=== PATIENT | male | born 1970 | race African-American/Black ===

== ENCOUNTER 2019-04-19 15:52 | Emergency (ER) | payer MEDICAID ==
[~2019-04-19] VITALS: Ht 180.3 cm; Wt 79.4 kg
[2019-04-19 16:01] VITALS: BP 129/77
[2019-04-19] MEDS ORDERED: NKM (16:04)
--- NOTE | 2019-04-19 16:18 | NUR ---
ED Nurse Note: pt walked in to ED due to swelling on right hand for 2-3 days. warm to touch. denies any pain or itchness. AAO x4. respirations even and non-labored noted. will wait for the further order.
[2019-04-19 16:47] VITALS: BP 149/86
--- NOTE | 2019-04-19 17:14 | Emergency Room Report ---
History of Present Illness General Chief Complaint: Upper Extremity Injury Source: Patient Present Illness HPI 49-year-old male with no significant past medical history here complaining of sudden onset of hand swelling that started 2 days ago. Patient does not recall falling or injuring himself. Reports that he lifts many heavy objects at work, however feels more discomfort and pressure rather than pain. The dorsum of his right hand is inflamed as well as slightly warm to touch. Patient denies fever and chills, tingling numbness, and no motor or sensory deficits noted. Patient has full range of motion. Denies chest pain, shortness of breath, palpitation, no other associated symptoms. Denies being bit by an insect or having a puncture wound. No signs of puncture wound noted. Has not taken medication for symptom relief. Allergies: Coded Allergies: No Known Allergies (Unverified , 04/19/19) Patient History Past Medical History: see triage record Past Surgical History: unable to obtain Pertinent Family History: none Immunizations: UTD Reviewed Nursing Documentation: PMH: Agreed; PSxH: Agreed Nursing Documentation-PMH Past Medical History: No Stated History Review of Systems All Other Systems: negative except mentioned in HPI Physical Exam Vital Signs Date Time Temp Pulse Resp B/P (MAP) Pulse Ox O2 Delivery O2 Flow Rate FiO2 04/19/19 16:01 99.0 106 16 129/77 98 Room Air Sp02 EP Interpretation: reviewed, normal General Appearance: no apparent distress, alert, GCS 15, non-toxic Head: normocephalic, atraumatic Eyes: bilateral eye normal inspection, bilateral eye PERRL ENT: hearing grossly normal, normal pharynx, no angioedema, normal voice Neck: full range of motion, supple/symm/no masses Respiratory: chest non-tender, lungs clear, normal breath sounds, speaking full sentences Cardiovascular #1: regular rate, rhythm, no edema, no murmur Cardiovascular #2: 2+ radial (R), 2+ radial (L) Gastrointestinal: normal bowel sounds, non tender, soft, non-distended, no guarding, no rebound Genitourinary: no CVA tenderness Musculoskeletal: back normal, digits/nails normal, gait/station normal, normal range of motion, non-tender, no calf tenderness, swelling - dorsum right hand Neurologic: alert, oriented x3, responsive, motor strength/tone normal, sensory intact, speech normal Psychiatric: judgement/insight normal, memory normal, mood/affect normal, no suicidal/homicidal ideation Skin: other - right hand warm to touch Lymphatic: no adenopathy Medical Decision Making PA Attestation All my diagnosis and treatment plans were reviewed ad discussed with my supervising physician Dr. Segal Diagnostic Impression: Primary Impression: Contusion of right hand Additional Impression: Cellulitis of hand ER Course 49-year-old male with no significant past medical history here complaining of sudden onset of hand swelling that started 2 days ago. Patient does not recall falling or injuring himself. Reports that he lifts many heavy objects at work, however feels more discomfort and pressure rather than pain. The dorsum of his right hand is inflamed as well as slightly warm to touch. Patient denies fever and chills, tingling numbness, and no motor or sensory deficits noted. Patient has full range of motion. Denies chest pain, shortness of breath, palpitation, no other associated symptoms. Denies being bit by an insect or having a puncture wound. No signs of puncture wound noted. Has not taken medication for symptom relief. Ddx considered but are not limited to : Cellulitis, superficial infection, abscess, hand fracture versus contusion versus sprain Vital signs: are WNL, pt. is afebrile H&PE are most consistent with: Right hand cellulitis, contusion of right hand ORDERS: Right hand x-ray, Augmentin, ibuprofen ED INTERVENTIONS: Goyo wrap and ibuprofen DISCHARGE: At this time pt. is stable for d/c to home. Will provide printed patient care instructions, and any necessary prescriptions. Care plan and follow up instructions have been discussed with the patient prior to discharge. Patient to follow-up with primary care provider possible infection noted if worsening symptoms or fever chills return to the emergency room Other X-Ray Diagnostic Results Other X-Ray Diagnostic Results : X-Ray ordered: right hand Xray # of Views/Limited Vs Complete: 3 View Indication: Pain EP Interpretation: Yes PA Xray: Interpretation reviewed, by supervising MD, and agrees with findings. Interpretation: no dislocation, no fractures Impression: No acute disease Electronically Signed by: Casandra Shelley PA-C Last Vital Signs Date Time Temp Pulse Resp B/P (MAP) Pulse Ox O2 Delivery O2 Flow Rate FiO2 04/19/19 16:47 98.1 109 18 149/86 95 Room Air Disposition: HOME, SELF-CARE Condition: Stable Scripts Amoxicillin/Potassium Clav 500-125 Tablet* (AUGMENTIN 500-125 TABLET*) 1 Each Tablet 1 TAB ORAL BID for 7 Days, #14 TAB Prov: Casandra Joya 04/19/19 Ibuprofen (Ibu) 800 Mg Tablet 800 MG PO BID, #30 TAB Prov: Casandra Joya 04/19/19 Referrals: NOT CHOSEN IPA/MD,REFERRING (PCP) Patient Instructions: Cellulitis, Hand Contusion, [id number] Additional Instructions: Take medication as directed avoid strenuous physical activity follow-up with your primary care provider Casandra Joya Apr 19, 2019 17:14
[2019-04-19] MEDS ORDERED: IBU800 MG PO (17:15)
[2019-04-19] MEDS ORDERED: AUGMENTIN 500-1 EACH ORAL (17:15)
[2019-04-19 17:22] VITALS: BP 133/78
--- NOTE | 2019-04-19 17:23 | NUR ---
ER DISCHARGE NOTE: Patient is cleared to be discharged per ERMD, pt is aox4, on room air, with stable vital signs. pt was given dc and prescription instructions, pt was able to verbalize understanding, pt id band removed without complications. pt is able to ambulate with steady gait. pt took all belongings.
== END 2019-04-19 17:23 | disposition home or self-care (01) ==
LOC: EMR 16:09
DX: L03.113 Cellulitis of right upper limb (principal); S60.221A Contusion of right hand, initial encounter; X58.XXXA Exposure to other specified factors, initial encounter; Y92.9 Unspecified place or not applicable
CPT/HCPCS: 73130; Z7502; 99283